=== PATIENT | female | born 1995 | race African-American/Black ===

== ENCOUNTER 2016-08-06 20:51 | Emergency (ER) | payer OTHER ==
[~2016-08-06] VITALS: Ht 157.5 cm; Wt 76.0 kg
[~2016-08-06 20:51] MED LIST: PREN0.01 PO
[2016-08-06 20:53] VITALS: BP 117/67; PULSE 105; RESP 16; TEMP 98.5; O2SAT 98
--- NOTE | 2016-08-06 22:44 | PD ---
HPI Chief Complaint: GI Complaint Time Seen by Provider: 22:34 Travel History International Travel<30 days: No Contact w/Intl Traveler<30days: No Traveled to known affect area: No History of Present Illness HPI The patient is a 20-year-old female, G2, P1, A0 that he has had nausea, vomiting and diarrhea for several days. She is 6 weeks . She has not had any OB follow-up yet. She has some very light spotting for 2 days. There is been no blood in the vomitus or stool. She has minimal periumbilical abdominal discomfort. PFSH Past Medical History Cardiovascular Problems: No Chemotherapy: No Genitourinary: No Musculoskeletal: Yes (Right hemerus Fx.) Neurologic: No Psychiatric: No Reproductive: No Respiratory: No Radiation Therapy: No Sickle Cell Disease: No Tetanus Vaccination: Unknown ?: : 2 Para: 1 Past Surgical History Section: Yes Pacemaker: No Social History Alcohol Use: No Tobacco Use: No Substance Use: Yes (once weeds) Allergies-Medications (Allergen,Severity, Reaction): Coded Allergies: No Known Allergies (Unverified , 08/06/16) Reported Meds & Prescriptions Reported Meds & Active Scripts Active No Active Prescriptions or Reported Medications Review of Systems Except as stated in HPI: all other systems reviewed are Neg Physical Exam Narrative GENERAL: The patient is alert, oriented 3 in minimal apparent distress with her abdominal discomfort. Her vital signs show heart rate of 105 and blood pressure and the rest the vital signs are normal for . SKIN: Focused skin assessment warm/dry. No skin rash is seen. HEAD: Atraumatic. Normocephalic. EYES: Pupils equal and round. No scleral icterus. No injection or drainage. ENT: No nasal bleeding or discharge. Mucous membranes pink and moist. NECK: Trachea midline. No JVD. CARDIOVASCULAR: Regular rate and rhythm. No murmur appreciated. RESPIRATORY: No accessory muscle use. Clear to auscultation. Breath sounds equal bilaterally. GASTROINTESTINAL: Abdomen soft, with minimal discomfort in the periumbilical area, nondistended. Hepatic and splenic margins not palpable. No guarding or rebound is present. MUSCULOSKELETAL: No obvious deformities. No clubbing. No cyanosis. No edema. NEUROLOGICAL: Awake and alert. No obvious cranial nerve deficits. Motor grossly within normal limits. Normal speech. PSYCHIATRIC: Appropriate mood and affect; insight and judgment normal. Data Data Last Documented VS Vital Signs Date Time Temp Pulse Resp B/P Pulse Ox O2 Delivery O2 Flow Rate FiO2 08/06/16 22:19 18 08/06/16 20:53 98.5 105 117/67 98 Room Air Orders Beta Hcg (Quant/Titer) (08/06/16 22:44) Complete Blood Count With Diff (08/06/16 22:44) Basic Metabolic Panel (Bmp) (08/06/16 22:44) Complete Rh (08/06/16 22:44) Us Pelvis (Ques Preg/Ectopic) (08/06/16 ) Lipase (08/06/16 22:44) Ondansetron Inj (Zofran Inj) (08/07/16 01:15) Sodium Chlor 0.9% 1000 Ml Inj (Ns 1000 M (08/07/16 01:15) Labs Laboratory Tests Test 08/06/16 23:04 Sodium Level 136 MEQ/L Potassium Level 3.7 MEQ/L Chloride Level 101 MEQ/L Carbon Dioxide Level 27.2 MEQ/L Anion Gap 8 MEQ/L Blood Urea Nitrogen 7 MG/DL Creatinine 0.60 MG/DL Estimat Glomerular Filtration 151 ML/MIN Rate Random Glucose 92 MG/DL Calcium Level 9.2 MG/DL Lipase 115 U/L Human Chorionic Gonadotropin, [address] MIU/ML Quant Blood Type O POSITIVE Rho(D) Type POSITIVE White Blood Count 15.0 TH/MM3 Red Blood Count 4.01 MIL/MM3 Hemoglobin 11.7 GM/DL Hematocrit 34.8 % Mean Corpuscular Volume 86.8 FL Mean Corpuscular Hemoglobin 29.1 PG Mean Corpuscular Hemoglobin 33.5 % Concent Red Cell Distribution Width 14.1 % Platelet Count 206 TH/MM3 Mean Platelet Volume 10.4 FL Neutrophils (%) (Auto) 89.2 % Lymphocytes (%) (Auto) 4.6 % Monocytes (%) (Auto) 5.9 % Eosinophils (%) (Auto) 0.1 % Basophils (%) (Auto) 0.2 % Neutrophils # (Auto) 13.4 TH/MM3 Lymphocytes # (Auto) 0.7 TH/MM3 Monocytes # (Auto) 0.9 TH/MM3 Eosinophils # (Auto) 0.0 TH/MM3 Basophils # (Auto) 0.0 TH/MM3 CBC Comment AUTO DIFF Differential Comment AUTO DIFF CONFIRMED MDM Medical Decision Making Medical Screen Exam Complete: Yes Emergency Medical Condition: Yes Medical Record Reviewed: Yes Interpretation(s) The ultrasound shows a viable IUP at 6 weeks and 3 days gestational age. Also noted is a small anterior uterine fibroid measuring 1.8 cm. There are hyperechoic areas adjacent to the gestational sac suggestive of subchorionic hemorrhage. The ovaries are unremarkable. The basic metabolic profile is normal and the lipase is normal. The CBC shows a white count of 15,000 but is otherwise unremarkable for . Differential Diagnosis Vomiting of , gastroenteritis, ectopic pregnancyunlikely, anemia, electrolyte disorder, pancreatitis, intrauterine Narrative Course The patient has hyperemesis gravidarum with intrauterine . She'll be given Zofran and told to increase her liquid intake. She needs to follow-up with an client engagement manager. She may also have a viral gastroenteritis since this is a little early for hyperemesis gravidarum. Diagnosis Primary Impression: Intrauterine Additional Impression: Hyperemesis gravidarum Additional Instructions: Follow-up with an client engagement manager. Increase liquid intake and take the Zofran to keep from vomiting. He should drink liquids like water/Gatorade and water and crackers. Med/Other Pt SpecificInfo: Prescription(s) given Scripts Ondansetron (Zofran)8 Mg Tab8 Mg PO TID #30 TAB Ref 0 Prov:Kyree Lopez MD 08/07/16 Disposition: 01 DISCHARGE HOME Condition: Stable Kyree Lopez MD Aug 06, 2016 22:44
[2016-08-06 23:38] LABS: AUTOMATED NEUTROPHIL # 13.4 TH/MM3 (1.8-7.7); BASOPHIL % 0.2 % (0.0-2.0); EOSINOPHIL % 0.1 % (0.0-4.0); HEMATOCRIT 34.8 % (35.0-46.0); LYMPH % 4.6 % (9.0-44.0); LYMPHOCYTE # 0.7 TH/MM3 (1.0-4.8); MEAN CELL VOLUME 86.8 FL (80.0-100.0); MEAN CORPUSCULAR HEMOGLOBIN 29.1 PG (27.0-34.0); MEAN CORPUSCULAR HGB CONC 33.5 % (32.0-36.0); MONO % 5.9 % (0.0-8.0); NEUT % 89.2 % (16.0-70.0); PLATELET COUNT 206 TH/MM3 (150-450); RED BLOOD COUNT 4.01 MIL/MM3 (4.00-5.30); RED CELL DISTRIBUTION WIDTH 14.1 % (11.6-17.2)
[2016-08-06 23:40] LABS: HEMO FLAGS AUTO DIFF
[2016-08-06 23:42] LABS: BICARBONATE 27.2 MEQ/L (21.0-32.0); POTASSIUM 3.7 MEQ/L (3.5-5.1)
[2016-08-07] MEDS ORDERED: ONDANSETRON HCL 4 MG/2 ML VIAL IV PUSH ONE (01:15)
[2016-08-07] MEDS ORDERED: SODIUM CHLOR 0.9% 1000 ML INJ 1,000 ML IV ONE (01:15)
[2016-08-07 01:30] LABS: SCAN/DIFF AUTO DIFF CONFIRMED
--- NOTE | 2016-08-07 01:47 | RADRPT ---
EXAM DATE/TIME: 08/07/2016 01:08 [facility] COMPARISON: No previous studies available for comparison. INDICATIONS : Pelvic pain and spotting. LAB(S): Beta-hC,168 MEDICAL HISTORY : . Substance use. SURGICAL HISTORY : section. Right femur fracture repair. ENCOUNTER: Initial ACUITY: 4-6 days PAIN SCORE: 7/10 LOCATION: Bilateral pelvis MEASUREMENTS: UTERUS: 10.4 x 7.1 x 5.3 cm ENDOMETRIAL STRIPE: 17 mm RIGHT OVARY: 2.4 x 1.8 x 2.2 cm LEFT OVARY: 2.3 x 1.8 x 1.6 cm FREE FLUID: No free fluid CROWN RUMP LENGTH: 0.6 cm = 6 WKS 3 DAYS FHR: 125 BPM FINDINGS: UTERUS: There is a gestational sac in the endometrial cavity. There is a pole measuring 6 weeks and 3 d ays of gestational age. There is a heartbeat at 125 beats per minute. There is a small hypoecho ic mass in the anterior fundus measuring 1.8 x 1.4 cm suggestive of a focal uterine fibroid. There is some hypoechoic areas adjacent to the gestational sac. There is an area measuring 3.1 cm on the left and 4.8 cm on the right. Probable subchorionic hemorrhage RIGHT OVARY: Ovary contains no mass or significant cystic lesion. LEFT OVARY: Ovary contains no mass or significant cystic lesion. MISCELLANEOUS: No free fluid. CONCLUSION: 1. Viable IUP of 6 weeks and 3 days of gestational age. 2. Small anterior uterine fibroid measuring 1.8 cm. 3. Hypoechoic areas adjacent to the gestational sac suggestive of subchorionic hemorrhage. 4. The ovaries are grossly unremarkable. Chris Alcocer MD on August 07, 2016 at 1:40 Board Certified Radiologist. This report was verified electronically.
[2016-08-07] MEDS ORDERED: ZOFR8TAB PO (01:56)
[2016-08-07] MEDS ORDERED: PRED50 PO (02:23)
[2016-08-07] MEDS ORDERED: predniSONE 50 MG TAB PO ONE (02:30)
== END 2016-08-07 02:41 | disposition home or self-care (01) ==
LOC: NEPC 20:51
DX: O21.0 Mild hyperemesis gravidarum (principal); O26.851 Spotting complicating pregnancy, first trimester; O26.891 Other specified pregnancy related conditions, first trimester; R19.7 Diarrhea, unspecified; R10.33 Periumbilical pain; Z3A.01 Less than 8 weeks gestation of pregnancy
CPT/HCPCS: 76700; 80048; 83690; 84702; 85025; 96361; 96374; 99284; J2405; J7030